=== PATIENT | female | born 1945 | race Two or more races ===

== ENCOUNTER 2017-08-14 11:49 | Emergency (ER) | payer OTHER, SELFPAY ==
[~2017-08-14] VITALS: Ht 160 cm; Wt 77.1 kg
[~2017-08-14 11:49] MED LIST: Aspir-Low81 MG PO; CIPR500 PO; CIPRO500 MG PO; CYAN1000 PO; DICY20 PO; Flagyl500 MG PO; HYDACE5 PO; HYDACE5325 PO; HYDMOR2 PO; HYDR-86 PO; Hydrocodone-Ap1 EA23 PO; IBUP600 PO; KETO10 PO; LORA1 PO; MULVITMINE PO; Norco 5-325 Ta1 EACH PO; OXYACE5T PO; PREN-16 PO; PROM25 PO; RXOXYACE PO; SERT100 PO; STOOL SOFTENER
[2017-08-14 12:19] LABS: BASOPHILS ABSOLUTE AUTO 0.04 K/mm3 (0.00-0.23); BASOPHILS PERCENT AUTO 1 % (0-2); EOSINOPHILS ABSOLUTE AUTO 0.07 K/mm3 (0.00-0.68); EOSINOPHILS PERCENT AUTO 1 % (0-6); Hematocrit 47.4 % (33.0-51.0); IMMATURE GRAN ABSOLUTE AUTO 0.03 K/mm3 (0.00-0.10); IMMATURE GRAN PERCENT AUTO 0 % (0-1); LYMPHOCYTES ABSOLUTE AUTO 2.05 K/mm3 (0.84-5.20); LYMPHOCYTES PERCENT AUTO 27 % (21-46); MONOCYTES ABSOLUTE AUTO 0.73 K/mm3 (0.16-1.47); MONOCYTES PERCENT AUTO 10 % (4-13); Mean Corpuscular HGB 30.3 pg (26.0-34.0); Mean Corpuscular HGB Conc 33.8 g/dL (31.5-36.5); Mean Corpuscular Volume 90 fL (80-100); Mean Platelet Volume 10.2 fL (9.1-12.4); NEUTROPHILS ABSOLUTE AUTO 4.63 K/mm3 (1.96-9.15); NEUTROPHILS PERCENT AUTO 61 % (41-73); Platelet Count 248 K/mm3 (150-400); RDW Coefficient Variation 13.9 % (11.7-14.2); RDW Standard Deviation 45.9 fL (35.1-46.3); Red Blood Cell Count 5.28 M/mm3 (3.80-5.20); White Blood Cell Count 7.55 K/mm3 (4.00-11.30)
[2017-08-14 12:40] LABS: Alanine Aminotransfer (ALT/SGP 23 U/L (12-78); Albumin, Blood 3.4 g/dL (3.4-5.0); Albumin/Globulin Ratio 0.8 (0.8-1.8); Alk Phos 97 U/L (50-136); Anion Gap 8 mmol/L (6-16); Aspartate Aminotrans (AST/SGOT 16 U/L (12-37); Bilirubin, Total 0.8 mg/dL (0.1-1.0); Blood Urea Nitrogen 10 mg/dL (8-24); Bun/Creatinine Ratio 11.7 (12.0-20.0); CO2, Blood 25 mmol/L (21-32); Calcium, Blood 8.7 mg/dL (8.5-10.1); Chloride, Blood 105 mmol/L (98-108); Creatinine, Blood 0.86 mg/dL (0.40-1.00); Globulin, Blood 4.3 g/dL (2.2-4.0); Glomerular Filtration Rate >60 (60-); Glucose, Blood 78 mg/dL (70-99); Potassium, Blood 4.2 mmol/L (3.5-5.5); Sodium, Blood 138 mmol/L (136-145); Total Protein, Blood 7.7 g/dL (6.4-8.2)
[2017-08-14 15:27] LABS: Source, Urine Clean Catch
[2017-08-14] MEDS ORDERED: Zofran Odt4 MG SL (15:30)
[2017-08-14] MEDS ORDERED: Cipro500 MG PO (15:30)
[2017-08-14] MEDS ORDERED: Flagyl500 MG PO (15:30)
[2017-08-14 15:38] LABS: Appearance, Urine Clear (Clear); Bilirubin, Urine Neg (Neg); Blood, Urine 1+ (Neg); Color, Urine Yellow (P-Yellow); Glucose Qualitative, Urine Neg (Neg); Ketones, Urine 1+ (Neg); Leukocyte Esterase, Urine Neg (Neg); Nitrite, Urine Neg (Neg); Protein, Urine Neg (Neg); Urobilinogen, Urine NORM (Normal)
[2017-08-14 15:52] LABS: Bacteria Not Seen /hpf; Red Blood Cells, Urine 0-2 /hpf (0-2); Squamous Epithelial Cells Rare /hpf (Few); White Blood Cells, Urine Not Seen /hpf (0-5)
== END 2017-08-14 15:43 | disposition home or self-care (01) ==
LOC: ER 11:49
PROVIDERS: Emergency Medicine
DX: K57.32 Diverticulitis of large intestine without perforation or abscess without bleeding (principal); F17.200 Nicotine dependence, unspecified, uncomplicated; Z88.8 Allergy status to other drugs, medicaments and biological substances; Z88.0 Allergy status to penicillin; Z88.5 Allergy status to narcotic agent; Z91.048 Other nonmedicinal substance allergy status
CPT/HCPCS: 36415; 74176; 80053; 81001; 83690; 85025; 87086; 96374; 99284; J2405; J7030

== ENCOUNTER 2018-06-14 08:59 | Day surgery (SDC) | payer OTHER ==
[~2018-06-14] VITALS: Ht 160 cm; Wt 76.2 kg
[~2018-06-14 08:59] MED LIST changes: +Cipro500 MG PO; +METO25ER PO; +MIRALAX17 GM PO; +SIMV10 PO; +Zofran Odt4 MG SL
--- NOTE | 2018-06-14 09:46 | NUR ---
Ambulatory in Day Surgery Surgical site prepped with 2% Chlorhexidine cloth wipe. History, Chart, Medications and Allergies reviewed before start of procedure. LUNGS DIMINISHED T/O. Patient confirms NPO status and agrees with scheduled surgery. Patient reports completing Chlorhexadine shower X2 prior to admission to hospital. ALL BELONINGS PLACED UNDER BED. PT AT BEDSIDE.
--- NOTE | 2018-06-14 09:51 | NUR ---
PT DID TAKE METOPROLOL WITH A SIP OF WATER.
--- NOTE | 2018-06-14 12:24 | NUR ---
06/14/18 1224 Viki Hewitt 1MG EPI PLACED IN FIRST 3 LITER BAG OF IRRIGATION FLUID. 8CC 0.5% WITH EPI 1:200,000 INJECTED AT END OF CASE BY TIA LUCAS. ALL COUNTS CORRECT.
--- NOTE | 2018-06-14 13:51 | NUR ---
Patient up to Ambulate independently. Gait steady. Discharge instructions reviewed with patient. Patient verbalizes understanding. Copy given to patient to take home. Dressing to procedure site clean, dry, intact with no visible drainage, swelling, erythema or bruising noted. Patient States Post-Procedure ride home has been arranged. Discharged via wheelchair to private car for ride home.
== END 2018-06-14 22:55 | disposition home or self-care (01) ==
LOC: ORSCMMR 08:59 → ORD 10:45 → ORSCMMR 10:45
PROVIDERS: Orthopaedic Surgery
PROC: 0SBC4ZZ Excision of Right Knee Joint, Percutaneous Endoscopic Approach (ICD-10-PCS; principal; 2018-06-14 10:45)
DX: S83.241A Other tear of medial meniscus, current injury, right knee, initial encounter (principal); M94.261 Chondromalacia, right knee; I10 Essential (primary) hypertension; J44.9 Chronic obstructive pulmonary disease, unspecified; F17.210 Nicotine dependence, cigarettes, uncomplicated; Z79.899 Other long term (current) drug therapy
CPT/HCPCS: J0171; J1100; J2250; J2370; J2405; J3010; J7120

== ENCOUNTER → 2019-06-16 | Outpatient (CLI) | payer OTHER | END | disposition home or self-care (01) | LOC: LAB EV 15:10 → LAB SHORT 15:10 | DX: H60.92 Unspecified otitis externa, left ear (principal) | CPT/HCPCS: 87070; 87106; 87205 ==

== ENCOUNTER 2020-06-20 08:34 | Day surgery (SDC) | payer OTHER, SELFPAY ==
[~2020-06-20] VITALS: Ht 160 cm; Wt 76.8 kg
[~2020-06-20 08:34] MED LIST changes: +ATIVAN0.5 MG PO
== END 2020-06-20 11:30 | disposition home or self-care (01) ==
LOC: ORSCSDS 08:34
DX: Z12.11 Encounter for screening for malignant neoplasm of colon (principal); Z86.010 Personal history of colon polyps; K52.9 Noninfective gastroenteritis and colitis, unspecified; D12.2 Benign neoplasm of ascending colon; D12.5 Benign neoplasm of sigmoid colon; K57.30 Diverticulosis of large intestine without perforation or abscess without bleeding; J44.9 Chronic obstructive pulmonary disease, unspecified; I10 Essential (primary) hypertension; F41.8 Other specified anxiety disorders; E66.9 Obesity, unspecified; Z68.30 Body mass index [BMI] 30.0-30.9, adult; F17.210 Nicotine dependence, cigarettes, uncomplicated; Z79.899 Other long term (current) drug therapy
CPT/HCPCS: 88305; J2405; J2704; J7120

== ENCOUNTER 2021-01-21 07:04 | Day surgery (SDC) | payer OTHER ==
[~2021-01-21] VITALS: Ht 160 cm; Wt 75.2 kg
--- NOTE | 2021-01-21 11:18 | NUR ---
Discharge instructions reviewed with patient. Patient verbalizes understanding. Copy given to patient to take home. DERMABOND IN PLACE TO MEDIPORT INCISION SITE X2. PT UP TO BATHROOM AMBULATED. PT COUGHS, STATES HAS BEEN HAVING PRODUCTIVE COUGH PRIOR TO PROCEDURE R/T CANCER. Discharged via wheelchair to private car for ride home.
== END 2021-01-21 11:22 | disposition home or self-care (01) ==
LOC: ORSCMMR 07:04 → ORD 08:30 → ORSCMMR 11:22
PROVIDERS: Surgery
PROC: B543ZZA Ultrasonography of Right Jugular Veins, Guidance (ICD-10-PCS; principal; 2021-01-21 08:30)
PROC: 05HM33Z Insertion of Infusion Device into Right Internal Jugular Vein, Percutaneous Approach (ICD-10-PCS; principal; 2021-01-21 08:30)
DX: C34.80 Malignant neoplasm of overlapping sites of unspecified bronchus and lung (principal); I10 Essential (primary) hypertension; J44.9 Chronic obstructive pulmonary disease, unspecified; F17.210 Nicotine dependence, cigarettes, uncomplicated; E78.5 Hyperlipidemia, unspecified; Z79.899 Other long term (current) drug therapy
CPT/HCPCS: 77001; A9270; C1788; J0690; J1100; J1642; J2250; J2370; J2405; J2704; J3010; J7120

== ENCOUNTER 2021-03-03 14:27 | Emergency (ER) | payer OTHER ==
[~2021-03-03] VITALS: Ht 172.7 cm; Wt 75.8 kg
[2021-03-03 15:15] LABS: Hematocrit 31.4 % (33.0-51.0); Hemoglobin 10.9 g/dL (11.5-16.0); Mean Corpuscular HGB 32.1 pg (26.0-34.0); Mean Corpuscular HGB Conc 34.7 g/dL (31.5-36.5); Mean Corpuscular Volume 92 fL (80-100); RDW Coefficient Variation 16.8 % (11.7-14.2); RDW Standard Deviation 53.3 fL (35.1-46.3); White Blood Cell Count 5.86 K/mm3 (4.00-11.30)
[2021-03-03 15:24] LABS: Platelet Count 40 K/mm3 (150-400)
[2021-03-03 15:31] LABS: Alanine Aminotransfer (ALT/SGP 19 U/L (12-78); Albumin, Blood 3.4 g/dL (3.4-5.0); Albumin/Globulin Ratio 0.9 (0.8-1.8); Alk Phos 91 U/L (50-136); Anion Gap 5 mmol/L (6-16); Aspartate Aminotrans (AST/SGOT 16 U/L (12-37); Bilirubin, Total 0.5 mg/dL (0.1-1.0); Blood Urea Nitrogen 13 mg/dL (8-24); Bun/Creatinine Ratio 14.7 (12.0-20.0); CO2, Blood 25 mmol/L (21-32); Calcium, Blood 9.1 mg/dL (8.5-10.1); Chloride, Blood 104 mmol/L (98-108); Creatinine, Blood 0.88 mg/dL (0.40-1.00); Globulin, Blood 3.7 g/dL (2.2-4.0); Glomerular Filtration Rate >60 (60-); Glucose, Blood 91 mg/dL (70-99); Potassium, Blood 4.3 mmol/L (3.5-5.5); Sodium, Blood 134 mmol/L (136-145); Total Protein, Blood 7.1 g/dL (6.4-8.2)
[2021-03-03 15:44] LABS: BAND PERCENT MAN 4 % (0-8); BASOPHILS PERCENT MAN 0 % (0-2); EOSINOPHILS PERCENT MAN 0 % (0-6); LYMPHOCYTES ABSOLUTE MAN 0.35 K/mm3 (0.84-5.20); LYMPHOCYTES PERCENT MAN 6 % (21-46); MONOCYTES ABSOLUTE MAN 0.23 K/mm3 (0.16-1.47); MONOCYTES PERCENT MAN 4 % (4-13); NEUTROPHILS ABSOLUTE MAN 5.27 K/mm3 (1.96-9.15); SEG NEUTROPHILS PERCENT MAN 86 % (41-73); TOTAL CELLS COUNTED 100
[2021-03-03 18:09] LABS: Magnesium, Blood 2.2 mg/dL (1.6-2.4); Troponin I <0.015 ng/mL (0.000-0.040)
== END 2021-03-03 19:45 | disposition home or self-care (01) ==
LOC: ER 14:27
PROVIDERS: Emergency Medicine; Physician Assistant
DX: E86.0 Dehydration (principal); R06.00 Dyspnea, unspecified; R53.1 Weakness; F17.200 Nicotine dependence, unspecified, uncomplicated; Z88.8 Allergy status to other drugs, medicaments and biological substances; Z88.0 Allergy status to penicillin; Z88.5 Allergy status to narcotic agent; Z91.048 Other nonmedicinal substance allergy status; Z91.030 Bee allergy status; Z79.899 Other long term (current) drug therapy
CPT/HCPCS: 36415; 71046; 80053; 83735; 83880; 84145; 84484; 85025; 93005; 93010; 99284-25; J7120

== ENCOUNTER 2021-03-05 14:22 | Emergency (ER) | payer OTHER ==
[~2021-03-05] VITALS: Ht 160 cm; Wt 74.8 kg
[2021-03-05 15:41] LABS: BASOPHILS ABSOLUTE AUTO 0.07 K/mm3 (0.00-0.23); BASOPHILS PERCENT AUTO 1 % (0-2); EOSINOPHILS ABSOLUTE AUTO 0.03 K/mm3 (0.00-0.68); EOSINOPHILS PERCENT AUTO 0 % (0-6); Hematocrit 30.4 % (33.0-51.0); Hemoglobin 10.6 g/dL (11.5-16.0); IMMATURE GRAN ABSOLUTE AUTO 0.14 K/mm3 (0.00-0.10); IMMATURE GRAN PERCENT AUTO 2 % (0-1); LYMPHOCYTES ABSOLUTE AUTO 0.54 K/mm3 (0.84-5.20); LYMPHOCYTES PERCENT AUTO 8 % (21-46); MONOCYTES ABSOLUTE AUTO 0.87 K/mm3 (0.16-1.47); MONOCYTES PERCENT AUTO 12 % (4-13); Mean Corpuscular HGB 31.7 pg (26.0-34.0); Mean Corpuscular HGB Conc 34.9 g/dL (31.5-36.5); Mean Corpuscular Volume 91 fL (80-100); NEUTROPHILS ABSOLUTE AUTO 5.55 K/mm3 (1.96-9.15); NEUTROPHILS PERCENT AUTO 77 % (41-73); Platelet Count 65 K/mm3 (150-400); RDW Coefficient Variation 17.2 % (11.7-14.2); RDW Standard Deviation 53.7 fL (35.1-46.3); Red Blood Cell Count 3.34 M/mm3 (3.80-5.20)
[2021-03-05 16:00] LABS: Alanine Aminotransfer (ALT/SGP 25 U/L (12-78); Albumin, Blood 3.2 g/dL (3.4-5.0); Albumin/Globulin Ratio 0.8 (0.8-1.8); Alk Phos 84 U/L (50-136); Anion Gap 9 mmol/L (6-16); Aspartate Aminotrans (AST/SGOT 21 U/L (12-37); Bilirubin, Total 0.5 mg/dL (0.1-1.0); Blood Urea Nitrogen 8 mg/dL (8-24); Bun/Creatinine Ratio 9.8 (12.0-20.0); CO2, Blood 22 mmol/L (21-32); Calcium, Blood 9.2 mg/dL (8.5-10.1); Chloride, Blood 104 mmol/L (98-108); Creatinine, Blood 0.82 mg/dL (0.40-1.00); Globulin, Blood 3.9 g/dL (2.2-4.0); Glomerular Filtration Rate >60 (60-); Glucose, Blood 88 mg/dL (70-99); Potassium, Blood 4.2 mmol/L (3.5-5.5); Sodium, Blood 135 mmol/L (136-145); Total Protein, Blood 7.1 g/dL (6.4-8.2)
== END 2021-03-05 18:02 | disposition home or self-care (01) ==
LOC: ER 14:22
PROVIDERS: Physician Assistant
DX: R03.1 Nonspecific low blood-pressure reading (principal); E86.0 Dehydration; F17.200 Nicotine dependence, unspecified, uncomplicated; Z88.0 Allergy status to penicillin; Z88.5 Allergy status to narcotic agent; Z91.048 Other nonmedicinal substance allergy status; Z91.030 Bee allergy status; Z79.899 Other long term (current) drug therapy
CPT/HCPCS: 80053; 85025; 99284; J7030

== ENCOUNTER 2021-11-27 11:37 | Emergency (ER) | payer OTHER ==
[~2021-11-27] VITALS: Ht 160 cm; Wt 64.0 kg
[~2021-11-27 11:37] MED LIST changes: +DEXA4; +MEMA10 PO
[2021-11-27 13:25] LABS: BASOPHILS ABSOLUTE AUTO 0.01 K/mm3 (0.00-0.23); BASOPHILS PERCENT AUTO 0 % (0-2); EOSINOPHILS ABSOLUTE AUTO 0.03 K/mm3 (0.00-0.68); EOSINOPHILS PERCENT AUTO 1 % (0-6); Hematocrit 42.6 % (33.0-51.0); Hemoglobin 14.7 g/dL (11.5-16.0); IMMATURE GRAN ABSOLUTE AUTO 0.02 K/mm3 (0.00-0.10); IMMATURE GRAN PERCENT AUTO 1 % (0-1); LYMPHOCYTES ABSOLUTE AUTO 1.03 K/mm3 (0.84-5.20); LYMPHOCYTES PERCENT AUTO 25 % (21-46); MONOCYTES ABSOLUTE AUTO 0.52 K/mm3 (0.16-1.47); MONOCYTES PERCENT AUTO 13 % (4-13); Mean Corpuscular HGB 32.3 pg (26.0-34.0); Mean Corpuscular HGB Conc 34.5 g/dL (31.5-36.5); Mean Corpuscular Volume 94 fL (80-100); Mean Platelet Volume 9.3 fL (9.1-12.4); NEUTROPHILS ABSOLUTE AUTO 2.52 K/mm3 (1.96-9.15); NEUTROPHILS PERCENT AUTO 61 % (41-73); Platelet Count 199 K/mm3 (150-400); RDW Coefficient Variation 13.6 % (11.7-14.2); Red Blood Cell Count 4.55 M/mm3 (3.80-5.20); White Blood Cell Count 4.13 K/mm3 (4.00-11.30)
[2021-11-27 13:41] LABS: Albumin, Blood 3.4 g/dL (3.4-5.0); Albumin/Globulin Ratio 1.1 (0.8-1.8); Bilirubin, Total 0.7 mg/dL (0.1-1.0); Bun/Creatinine Ratio 8.4 (12.0-20.0); Calcium, Blood 9.4 mg/dL (8.5-10.1); Creatinine, Blood 0.72 mg/dL (0.40-1.00); Globulin, Blood 3.2 g/dL (2.2-4.0); Total Protein, Blood 6.6 g/dL (6.4-8.2)
== END 2021-11-27 16:23 | disposition home or self-care (01) ==
LOC: ER 11:37
PROVIDERS: Physician Assistant
DX: R22.1 Localized swelling, mass and lump, neck (principal); F17.210 Nicotine dependence, cigarettes, uncomplicated; Z88.0 Allergy status to penicillin; Z88.5 Allergy status to narcotic agent; Z91.09 Other allergy status, other than to drugs and biological substances; Z79.899 Other long term (current) drug therapy
CPT/HCPCS: 36415; 70450; 80053; 85025

== ENCOUNTER 2023-01-25 12:36 | Emergency (ER) | payer OTHER ==
[~2023-01-25] VITALS: Ht 160 cm; Wt 65.8 kg
[2023-01-25 12:40] VITALS: BP 120/85
== END 2023-01-25 13:57 | disposition home or self-care (01) ==
LOC: ER 12:36
DX: S60.212A Contusion of left wrist, initial encounter (principal); F17.210 Nicotine dependence, cigarettes, uncomplicated; Z79.899 Other long term (current) drug therapy; W19.XXXA Unspecified fall, initial encounter
CPT/HCPCS: 99282

== ENCOUNTER 2023-07-04 16:55 | Emergency (ER) | payer OTHER ==
[~2023-07-04] VITALS: Ht 160 cm; Wt 61.7 kg
[2023-07-04 18:08] LABS: Albumin, Blood 3.4 g/dL (3.4-5.0); Bilirubin, Total 0.8 mg/dL (0.1-1.0); Bun/Creatinine Ratio 10.2 (12.0-20.0); Calcium, Blood 9.2 mg/dL (8.5-10.1); Creatinine, Blood 0.88 mg/dL (0.40-1.00); Globulin, Blood 3.4 g/dL (2.2-4.0); Potassium, Blood 4.4 mmol/L (3.5-5.5); Total Protein, Blood 6.8 g/dL (6.4-8.2)
[2023-07-04 19:51] LABS: BASOPHILS ABSOLUTE AUTO 0.02 K/mm3 (0.00-0.23); BASOPHILS PERCENT AUTO 0 % (0-2); EOSINOPHILS ABSOLUTE AUTO 0.01 K/mm3 (0.00-0.68); EOSINOPHILS PERCENT AUTO 0 % (0-6); Hematocrit 45.1 % (33.0-51.0); Hemoglobin 15.5 g/dL (11.5-16.0); IMMATURE GRAN ABSOLUTE AUTO 0.03 K/mm3 (0.00-0.10); IMMATURE GRAN PERCENT AUTO 0 % (0-1); LYMPHOCYTES ABSOLUTE AUTO 0.96 K/mm3 (0.84-5.20); LYMPHOCYTES PERCENT AUTO 14 % (21-46); MONOCYTES ABSOLUTE AUTO 0.45 K/mm3 (0.16-1.47); MONOCYTES PERCENT AUTO 7 % (4-13); Mean Corpuscular HGB 32.4 pg (26.0-34.0); Mean Corpuscular HGB Conc 34.4 g/dL (31.5-36.5); Mean Corpuscular Volume 94 fL (80-100); Mean Platelet Volume 9.6 fL (9.1-12.4); NEUTROPHILS ABSOLUTE AUTO 5.24 K/mm3 (1.96-9.15); NEUTROPHILS PERCENT AUTO 78 % (41-73); Platelet Count 177 K/mm3 (150-400); RDW Coefficient Variation 13.8 % (11.7-14.2); RDW Standard Deviation 48.2 fL (35.1-46.3); Red Blood Cell Count 4.79 M/mm3 (3.80-5.20); White Blood Cell Count 6.71 K/mm3 (4.00-11.30)
[2023-07-04 20:00] VITALS: BP 128/92
== END 2023-07-04 20:00 | disposition home or self-care (01) ==
LOC: ER 16:55
PROVIDERS: Emergency Medicine; Physician Assistant
DX: R55 Syncope and collapse (principal); S00.03XA Contusion of scalp, initial encounter; W22.8XXA Striking against or struck by other objects, initial encounter; Z88.8 Allergy status to other drugs, medicaments and biological substances; Z88.0 Allergy status to penicillin; Z88.5 Allergy status to narcotic agent; Z91.048 Other nonmedicinal substance allergy status; Z91.030 Bee allergy status; Z79.899 Other long term (current) drug therapy; F17.210 Nicotine dependence, cigarettes, uncomplicated
CPT/HCPCS: 70450; 71046; 80053; 85025; 93005; 93010; 99284-25

== ENCOUNTER 2024-07-17 10:19 | Inpatient (IN) | payer OTHER ==
[~2024-07-17] VITALS: Ht 160 cm; Wt 58.8 kg
[2024-07-17 11:07] LABS: BASOPHILS ABSOLUTE AUTO 0.08 K/mm3 (0.00-0.23); BASOPHILS PERCENT AUTO 1 % (0-2); EOSINOPHILS ABSOLUTE AUTO 0.01 K/mm3 (0.00-0.68); EOSINOPHILS PERCENT AUTO 0 % (0-6); Hematocrit 43.1 % (33.0-51.0); Hemoglobin 14.9 g/dL (11.5-16.0); IMMATURE GRAN ABSOLUTE AUTO 0.12 K/mm3 (0.00-0.10); IMMATURE GRAN PERCENT AUTO 1 % (0-1); LYMPHOCYTES ABSOLUTE AUTO 0.68 K/mm3 (0.84-5.20); LYMPHOCYTES PERCENT AUTO 6 % (21-46); MONOCYTES ABSOLUTE AUTO 0.91 K/mm3 (0.16-1.47); MONOCYTES PERCENT AUTO 8 % (4-13); Mean Corpuscular HGB 31.5 pg (26.0-34.0); Mean Corpuscular HGB Conc 34.6 g/dL (31.5-36.5); Mean Corpuscular Volume 91 fL (80-100); Mean Platelet Volume 9.2 fL (9.1-12.4); NEUTROPHILS PERCENT AUTO 84 % (41-73); Platelet Count 325 K/mm3 (150-400); RDW Coefficient Variation 13.2 % (11.7-14.2); RDW Standard Deviation 44.9 fL (35.1-46.3); Red Blood Cell Count 4.73 M/mm3 (3.80-5.20)
[2024-07-17 11:48] LABS: Albumin, Blood 2.9 g/dL (3.4-5.0); Albumin/Globulin Ratio 0.6 (0.8-1.8); Bun/Creatinine Ratio 16.2 (12.0-20.0); Calcium, Blood 9.7 mg/dL (8.5-10.1); Creatinine, Blood 0.8 mg/dL (0.40-1.00); Potassium, Blood 3.8 mmol/L (3.5-5.5); Total Protein, Blood 7.9 g/dL (6.4-8.2)
[2024-07-17] MEDS ORDERED: Albuterol 2.5 MG/3 ML VIAL INH SCH ×2 (17:40→21:20)
[2024-07-17] MEDS ORDERED: Ipratropium Bromide INH 0.02% 0.5 mg/2.5ML Vial INH SCH ×2 (17:45→21:20)
[2024-07-17] MEDS ORDERED: MethylPREDNISolone Sod Succ 125 MG Vial IV ONE (17:45)
[2024-07-17 18:20] LABS: Magnesium, Blood 2.4 mg/dL (1.6-2.4)
[2024-07-17 19:47] LABS: Influenza A, PCR NEGATIVE (NEGATIVE); Influenza B, PCR NEGATIVE (NEGATIVE); Resp Syncytial Virus, PCR NEGATIVE (NEGATIVE); SARS-Cov-2 (COVID-19) PCR, MMC NEGATIVE (NEGATIVE)
[2024-07-17 19:47] LABS: Source, Urine Clean Catch
[2024-07-17 19:51] LABS: Blood, Urine 4+ (Neg); Glucose Qualitative, Urine Neg (Neg); Ketones, Urine 3+ (Neg); Leukocyte Esterase, Urine 1+ (Neg); Nitrite, Urine Neg (Neg); Protein, Urine 3+ (Neg); Specific Gravity, Urine 1.025 (1.003-1.022); Urobilinogen, Urine 3+ (Normal)
[2024-07-17 19:56] LABS: Appearance, Urine Hazy (Clear); Bilirubin, Urine 1+ (Neg); Color, Urine Amber (P-Yellow)
[2024-07-17 19:58] LABS: Bacteria Few /hpf; Red Blood Cells, Urine 0-2 /hpf (0-2); Squamous Epithelial Cells Few /hpf (Few); Transitional Epithelial Cells Few /hpf (0-Rare)
[2024-07-17] MEDS ORDERED: Azithromycin 500 MG in NS 250 ML IV ONE (21:15)
[2024-07-17] MEDS ORDERED: CefTRIAXone Sodium 1,000 MG in NS 100 ML IV ONE (21:15)
[2024-07-17] MEDS ORDERED: Ondansetron HCl 2 MG / ML 2ML Vial IV PRN (22:20)
[2024-07-17] MEDS ORDERED: Ipratropium/Albuterol SulF 2.5-0.5MG/3 ML Amp INH PRN (22:20)
[2024-07-17] MEDS ORDERED: Guaifenesin/Dextromethorphan Syrup 5 ML UDC PO PRN (22:20)
[2024-07-17] MEDS ORDERED: FLU VACC TS2024-25(6MOS UP)/PF 45 MCG/0.5 ML SYRINGE IM ONE (22:20)
[2024-07-17 22:37] LABS: Bicarbonate Venous 23.4 mmol/L (24.0-30.0); PCO2 Venous 31.4 mmHg (38-42); pH Blood Venous 7.45 (7.34-7.37)
[2024-07-17] MEDS ORDERED: Enoxaparin 40 MG/0.4 ML SYR SC SCH (23:00)
[2024-07-18] MEDS ORDERED: MethylPREDNISolone Sod Succ 125 MG Vial IV SCH
[2024-07-18] MEDS ORDERED: NS 1,000 ML IV SCH (03:25)
[2024-07-18 04:00] LABS: BASOPHILS ABSOLUTE AUTO 0.04 K/mm3 (0.00-0.23); BASOPHILS PERCENT AUTO 1 % (0-2); EOSINOPHILS PERCENT AUTO 0 % (0-6); Hematocrit 38.3 % (33.0-51.0); Hemoglobin 13.3 g/dL (11.5-16.0); Mean Corpuscular HGB 31.5 pg (26.0-34.0); Mean Corpuscular HGB Conc 34.7 g/dL (31.5-36.5); Mean Corpuscular Volume 91 fL (80-100); Mean Platelet Volume 9.3 fL (9.1-12.4); Platelet Count 264 K/mm3 (150-400); RDW Coefficient Variation 13.4 % (11.7-14.2); Red Blood Cell Count 4.22 M/mm3 (3.80-5.20)
[2024-07-18 04:02] LABS: IMMATURE GRAN ABSOLUTE AUTO 0.09 K/mm3 (0.00-0.10); IMMATURE GRAN PERCENT AUTO 1 % (0-1); LYMPHOCYTES ABSOLUTE AUTO 0.31 K/mm3 (0.84-5.20); LYMPHOCYTES PERCENT AUTO 5 % (21-46); MONOCYTES PERCENT AUTO 2 % (4-13); NEUTROPHILS ABSOLUTE AUTO 5.96 K/mm3 (1.96-9.15); NEUTROPHILS PERCENT AUTO 92 % (41-73)
[2024-07-18 04:28] LABS: Albumin, Blood 2.2 g/dL (3.4-5.0); Albumin/Globulin Ratio 0.5 (0.8-1.8); Bilirubin, Total 0.5 mg/dL (0.1-1.0); Bun/Creatinine Ratio 22.3 (12.0-20.0); Calcium, Blood 8.4 mg/dL (8.5-10.1); Creatinine, Blood 0.63 mg/dL (0.40-1.00); Globulin, Blood 4.3 g/dL (2.2-4.0); Potassium, Blood 3.6 mmol/L (3.5-5.5); Total Protein, Blood 6.5 g/dL (6.4-8.2)
--- NOTE | 2024-07-18 06:16 | NUR ---
ADMIT NOTE HANDOFF RECEIVED FROM FINE SANDER GEENA. PT ARRIVED TO FLOOR VIA DIANA. PT ORIENTED TO UNIT. CALL BUTTON WITHIN REACH. 3 LPM O2 VIA MA. TELEMETRY IN PLACE. I DID CALL PHARMACY TO VERIFY THE 6 AM DOSE OF STEROIDS IS TO BE ADMINISTERED. THIS WAS CONFIRMED. BED ALARM IS ACTIVE.
[2024-07-18 06:29] VITALS: BP 132/70
[2024-07-18 08:50] VITALS: BP 107/69
[2024-07-18] MEDS ORDERED: OYSTER SHELL C500 MG PO (09:22)
[2024-07-18] MEDS ORDERED: CYMBALTA30 M2 PO (09:22)
[2024-07-18] MEDS ORDERED: ROSUVASTATIN CA10 MG PO (09:23)
[2024-07-18 11:35] VITALS: BP 109/93
--- NOTE | 2024-07-18 13:45 | NUR ---
Spiritual Care Visit. Pt. is startled when I enter the room and screams. After backing away from the Pt., the Pt. welcomed my visit. Though given to being startled , the Pt. is pleasant. Facilitated a life review and considered matters of scott and belief. Pt. displays evidence of trust and engagement. Pt . 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 Prayed with the Pt. Pt. 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
[2024-07-18 16:15] VITALS: BP 122/68
--- NOTE | 2024-07-18 18:57 | NUR ---
End of shift note. Pt has been pleasant and cooperative call shift. Pt is easily startles to staff entering room, this is baseline according to family. Pt has walked the unit multiple times with staff and PT. Pt has weaned off supplemental oxygen. Pt continues to have a productive cough. Pt was downgraded to medical status. Pt is able to make needs known, call light is within reach. Bed alarm is active.
--- NOTE | 2024-07-18 19:02 | NUR ---
End of shift note. Pt has been awake and restless for much of this shift. Mentation waxes and wanes throughout the day. Pt is typically able to answer orientation questions appropriately but does have noted forgetfulness at times. Pupils remain unequal and sluggish to light. Vitals have been stable. PO Amio was held this morning for HR <60. ST eval this morning, ordered meds crushed with applesauce but no diet due to mentation status. C Collar is ordered but Pt has been refusing to wear it. Staff acquired a softer, more comfortable collar but it only lasted 20 mins before Pt was pulling to take it off. MD is aware that Pt is refusing and trying to take off. Pt has been repositioned as tolerated but is very restless and self adjusts in bed. Blood sugars have been low this shift. 1amp D50 given at shift change and IVF were changed. Pt slowly decreased throughout shift and required amp this afternoon. Most recent CBG 83. Periwick is in place but pt has mostly had incontinent brief changes this shift. Liver labs elevated, GI consult was phoned in. Pt tolerated PO lactalose small spoonfuls, in good swallowing position. Family has been at bedside all shift and has been the reliable source of information. Pt is able to make needs known, call light is within reach. Bed alarm is active.
[2024-07-18] MEDS ORDERED: CefTRIAXone Sodium 1,000 MG in NS 100 ML IV SCH (21:00)
[2024-07-18 21:19] VITALS: BP 114/67
[2024-07-18 23:21] VITALS: BP 113/71
[2024-07-19 03:35] VITALS: BP 124/67
[2024-07-19 03:56] LABS: BASOPHILS ABSOLUTE AUTO 0.07 K/mm3 (0.00-0.23); BASOPHILS PERCENT AUTO 1 % (0-2); EOSINOPHILS PERCENT AUTO 0 % (0-6); Hematocrit 41.1 % (33.0-51.0); IMMATURE GRAN ABSOLUTE AUTO 0.21 K/mm3 (0.00-0.10); IMMATURE GRAN PERCENT AUTO 2 % (0-1); LYMPHOCYTES ABSOLUTE AUTO 0.66 K/mm3 (0.84-5.20); LYMPHOCYTES PERCENT AUTO 6 % (21-46); MONOCYTES PERCENT AUTO 3 % (4-13); Mean Corpuscular HGB 30.9 pg (26.0-34.0); Mean Corpuscular HGB Conc 34.1 g/dL (31.5-36.5); Mean Corpuscular Volume 91 fL (80-100); Mean Platelet Volume 9.6 fL (9.1-12.4); NEUTROPHILS ABSOLUTE AUTO 10.38 K/mm3 (1.96-9.15); NEUTROPHILS PERCENT AUTO 89 % (41-73); Platelet Count 309 K/mm3 (150-400); RDW Coefficient Variation 13.3 % (11.7-14.2); RDW Standard Deviation 43.8 fL (35.1-46.3); Red Blood Cell Count 4.53 M/mm3 (3.80-5.20); White Blood Cell Count 11.62 K/mm3 (4.00-11.30)
[2024-07-19 04:21] LABS: Albumin, Blood 2.4 g/dL (3.4-5.0); Albumin/Globulin Ratio 0.6 (0.8-1.8); Bilirubin, Total 0.3 mg/dL (0.1-1.0); Bun/Creatinine Ratio 30.3 (12.0-20.0); Calcium, Blood 9.5 mg/dL (8.5-10.1); Creatinine, Blood 0.66 mg/dL (0.40-1.00); Globulin, Blood 4.2 g/dL (2.2-4.0); Potassium, Blood 4.3 mmol/L (3.5-5.5); Total Protein, Blood 6.6 g/dL (6.4-8.2)
--- NOTE | 2024-07-19 04:29 | NUR ---
SHIFT SUMMARY. SHIFT HAS BEEN UNREMARKABLE. PT HAS BEEN ORIENTED THROUGHOUT SHIFT, COOPERATIVE WITH CARE, PLEASANT. HAS BEEN ABLE TO REST COMFORTABLY THROUGHOUT MOST OF SHIFT. IMPULSIVE AT TIMES, BED ALARM ACTIVE. VITALS HAVE BEEN STABLE. HAS BEEN RUNNING SINUS THROUGHOUT SHIFT WITH RATE MOSTLY SETTLING IN THE 60s. HAS DENIED PAIN THROUGHOUT SHIFT. HAS BEEN MAINTAINING ADEQUATE SATURATION ON 2 L O2 VIA NC WHILE SLEEPING THROUGHOUT SHIFT. STEADY 1PA TRANSFER TO BATHROOM W/FWW. BED LOCKED IN LOWEST POSITION. CALL LIGHT LEFT WITHIN REACH. CONTINUING TO MONITOR.
[2024-07-19] MEDS ORDERED: Azithromycin 500 MG in NS 250 ML IV SCH (06:00)
--- NOTE | 2024-07-19 06:34 | NUR ---
PT COMPLAINING OF ABD PAIN THAT RADIATES TO SIDE THAT CAME ON SUDDENLY. TENDER ON PALPATION. PT REPORTED IT INITIALLY FELT LIKE IT WAS IN THE CHEST BUT PT REPORTED IT PASSED QUICKLY AND IS NO LONGER AFFECTING HER CHEST, JUST ABD AND SIDE. CALLED DR. JUNIOR WHO ORDERED TUMS FOR MANAGEMENT. ORDERED TUMS. AWAITING VERIFICATION.
[2024-07-19] MEDS ORDERED: Calcium Carbonate 500 MG Tab Chew PO PRN (06:35)
[2024-07-19 08:54] VITALS: BP 95/69
[2024-07-19] MEDS ORDERED: Rosuvastatin Calcium 10 MG Tab PO SCH (09:00)
[2024-07-19] MEDS ORDERED: DULoxetine HCL 30 MG Cap DR PO SCH (09:00)
[2024-07-19] MEDS ORDERED: Ipratropium/Albuterol SulF 2.5-0.5MG/3 ML Amp INH PRN (09:00)
[2024-07-19 09:57] VITALS: BP 113/67
[2024-07-19 11:37] VITALS: BP 117/65
[2024-07-19] MEDS ORDERED: PredniSONE 20 MG Tab PO SCH (13:00)
--- NOTE | 2024-07-19 13:00 | NUR ---
TRANSFER TO ICU/ SHIFT SUMMERY: NO ACUTE CHANGES OR SIGNIFICANT EVENTS HAPPENED DURING THIS SHIFT. PT REAMAINED A&OX4. FOLLOWS COMMANDS AND MADE NEEDS KNOWN TO STAFF. PLAN FOR POSSIBLE DC TOMORROW. REPORT CALLED TO ROOM 327 RN. BELONGINGS COLLECTED AND TAKEN TO ROOM WITH PT BY THIS RN.
[2024-07-19] MEDS ORDERED: Albuterol 2.5 MG/3 ML VIAL INH PRN (17:05)
[2024-07-19] MEDS ORDERED: Tiotropium Bromide 2.5 MCG/ACT MIST INHAL (10 ACT/4 GM) INH SCH (17:05)
--- NOTE | 2024-07-19 17:37 | NUR ---
TRANSFER FROM PCU AND SHIFT SUMMARY PATIENT TRANSFERED FROM PCU VIA WHEELCHAIR. PATIENT ALERT AND INTERACTIVE BUT FORGETFUL. PATIENT CONTINUES TO HAVE SHORTNESS OF BREATH. NO SKIN ISSUES NOTED ON TRANSFER. PATIENT ABLE TO WALK INTO BATHROOM WITH WALKER BUT HAS BALANCE ISSUES WHEN ATTEMPTING TO PULL DOWN UNDERGARMENTS. PATIENT STATES THAT SHE HAS FALLEN FREQUENTLY LATELY. PATIENT ALSO STATES THAT SHE IS SEEING THINGS IN HER ROOM THAT SHE KNOWS ARE NOT REAL. PROVIDED ACTIVE LISTENING AND SUPPORTING PATIENT.
[2024-07-19 17:48] VITALS: BP 121/62
[2024-07-19 19:57] VITALS: BP 133/74
[2024-07-20 02:25] VITALS: BP 135/80
[2024-07-20 05:54] LABS: BASOPHILS ABSOLUTE AUTO 0.04 K/mm3 (0.00-0.23); BASOPHILS PERCENT AUTO 0 % (0-2); EOSINOPHILS PERCENT AUTO 0 % (0-6); Hematocrit 35.1 % (33.0-51.0); Hemoglobin 12.1 g/dL (11.5-16.0); IMMATURE GRAN ABSOLUTE AUTO 0.18 K/mm3 (0.00-0.10); IMMATURE GRAN PERCENT AUTO 2 % (0-1); LYMPHOCYTES ABSOLUTE AUTO 0.81 K/mm3 (0.84-5.20); LYMPHOCYTES PERCENT AUTO 9 % (21-46); MONOCYTES ABSOLUTE AUTO 0.46 K/mm3 (0.16-1.47); MONOCYTES PERCENT AUTO 5 % (4-13); Mean Corpuscular HGB 31.3 pg (26.0-34.0); Mean Corpuscular HGB Conc 34.5 g/dL (31.5-36.5); Mean Corpuscular Volume 91 fL (80-100); Mean Platelet Volume 9.4 fL (9.1-12.4); NEUTROPHILS ABSOLUTE AUTO 7.61 K/mm3 (1.96-9.15); NEUTROPHILS PERCENT AUTO 84 % (41-73); Platelet Count 309 K/mm3 (150-400); RDW Coefficient Variation 13.2 % (11.7-14.2); Red Blood Cell Count 3.87 M/mm3 (3.80-5.20)
[2024-07-20 06:41] LABS: Albumin, Blood 2.1 g/dL (3.4-5.0); Albumin/Globulin Ratio 0.6 (0.8-1.8); Bilirubin, Total 0.4 mg/dL (0.1-1.0); Bun/Creatinine Ratio 35.5 (12.0-20.0); Calcium, Blood 8.6 mg/dL (8.5-10.1); Creatinine, Blood 0.65 mg/dL (0.40-1.00); Globulin, Blood 3.5 g/dL (2.2-4.0); Potassium, Blood 4.2 mmol/L (3.5-5.5); Total Protein, Blood 5.6 g/dL (6.4-8.2)
--- NOTE | 2024-07-20 07:24 | NUR ---
ASSUMED CARE OF PATIENT. AWAKE DURING SHIFT-CHANGE REPORT. REQUESTING HOT CHOCOLATE ON BREAKFAST TRY; FOOD REQUEST SUBMITTED. BED IN LOWEST POSITION. CALL LIGHT WITHIN REACH.
[2024-07-20 07:40] VITALS: BP 138/83
[2024-07-20] MEDS ORDERED: Albuterol 2.5 MG/3 ML VIAL INH PRN (08:25)
[2024-07-20] MEDS ORDERED: PredniSONE 20 MG Tab PO SCH (09:00)
[2024-07-20] MEDS ORDERED: Ipratropium/Albuterol SulF 2.5-0.5MG/3 ML Amp INH SCH (09:00)
[2024-07-20] MEDS ORDERED: Ventolin5 MG/1 ML INH (12:00)
[2024-07-20] MEDS ORDERED: GUAIASORB DM 2118 ML PO (12:01)
[2024-07-20] MEDS ORDERED: AZIT500 PO (12:02)
[2024-07-20] MEDS ORDERED: SPIRIVA RESPIMAT4 G3 INH (12:03)
[2024-07-20] MEDS ORDERED: CEFP200 PO (12:04)
[2024-07-20] MEDS ORDERED: ALBU90OI6 INH (12:04)
--- NOTE | 2024-07-20 12:52 | NUR ---
DISCHARGE SUMMARY: A&Ox4. BED ALARM FOR FORGETFULNESS AND UNSAFE DECISION-MAKING. AMBULATES c FWW. CONTINENT OF BOWEL AND BLADDER. MEDS WHOLE c FLUIDS. NO TELE OR C/O PAIN. MAINTAINING SPO2 >92% ON RA WHILE AWAKE. [facility] INSTRUCTED TO FOLLOW-UP WITH DR. VICK WITHIN THE WEEK. LEFT FLOOR WITH ALL BELONGINGS AND DISCHARGE PACKET, ESCORTED HER WHO WAS ALSO PROVIDING TRANSPORTATION.
== END 2024-07-20 12:30 | disposition home or self-care (01) | DRG 193 ==
LOC: ER 10:19 → ERHOLD 21:49 → PCU 21:49 → MEDS 07-19 15:18 → ENPENDDIS 07-20 11:49 → MEDS 07-20 12:30
PROVIDERS: Nurse Practitioner Acute Care; Physician Assistant; Student in an Organized Health Care Education/Training Program; ADMIT Internal Medicine
DX: J18.9 Pneumonia, unspecified organism (principal); J96.21 Acute and chronic respiratory failure with hypoxia; J44.0 Chronic obstructive pulmonary disease with (acute) lower respiratory infection; J44.1 Chronic obstructive pulmonary disease with (acute) exacerbation; I10 Essential (primary) hypertension; E78.5 Hyperlipidemia, unspecified; I70.0 Atherosclerosis of aorta; F17.210 Nicotine dependence, cigarettes, uncomplicated; Z28.21 Immunization not carried out because of patient refusal; Z79.899 Other long term (current) drug therapy; Z91.81 History of falling; Z88.0 Allergy status to penicillin; Z91.048 Other nonmedicinal substance allergy status; Z88.5 Allergy status to narcotic agent; Z88.8 Allergy status to other drugs, medicaments and biological substances; Z85.118 Personal history of other malignant neoplasm of bronchus and lung; Z85.841 Personal history of malignant neoplasm of brain; Z90.49 Acquired absence of other specified parts of digestive tract; Z85.828 Personal history of other malignant neoplasm of skin; Z90.2 Acquired absence of lung [part of]
CPT/HCPCS: 0241U; 36415; 70450; 71045; 74177; 80053; 81001; 82803; 82947; 83690; 83735; 83880; 84100; 84145; 85025; 87070; 87086; 87205; 93005; 93010; 94640; 94644; 94645; 94664; 94760; 94762; 96374-59; 97116; 97161; 99285-25; A9270; J0456; J0696; J1650; J2405; J2919; J7030; J7050; J7512; Q9967